=== PATIENT | male | born 1960 | race Caucasian/White ===

== ENCOUNTER 2016-08-19 07:30 | Day surgery (SDC) | payer OTHER ==
[~2016-08-19] VITALS: Ht 182.9 cm; Wt 94.9 kg
--- NOTE | ~2016-08-19 | OR ---
PATIENT'S NAME: [facility] AGE: 56 Y [address] ROOM: [place] [id number] LOCATION: GEND ADMIT DATE: 08/19/2016 OR/Procedure Report DISCHARGE DATE: 08/19/2016 FAMILY PHYSICIAN: Yusuf Pereira MD ATTENDING PHYSICIAN: ROMMEL BARKER SURGEON: Pee Harrison MD PROPERTY CUSTODIAN: DATE OF PROCEDURE: 08/19/2016 PROCEDURE PERFORMED: Esophagogastroduodenoscopy. INDICATION: GERD and abdominal pain. MEDICATIONS: Please see anesthesiology record for details. CONSENT: The risks/benefits/alternatives were discussed and the patient or his power of divorce attorney expressed understanding and agreed to proceed. Informed consent was obtained and placed in the chart. Time-out was completed prior to starting the procedure. PROCEDURE: Patient was placed in the left lateral decubitus position. One- lead EKG monitoring was used along with intermittent blood pressure monitoring and pulse oximetry. Bite block was placed in the patient's mouth. The above medications were given and titrated to response. Once adequate sedation was completed, the endoscope was passed through the patient's mouth into the posterior oropharynx. The endoscope was then passed into the esophagus, stomach and duodenal bulb. The duodenum was examined through the third portion. The endoscope was then withdrawn into the stomach. In the stomach, retroflexion was completed. The scope was then straightened and withdrawn from the patient. The patient tolerated the procedure well. There were no complications. SUMMARY OF FINDINGS: 1. Normal esophagus with a regular Z-line. No evidence of any hiatal hernia on exam today. 2. Mild gastritis status post biopsies, rule out H pylori. 3. Normal duodenum. Subtle villous flattening status post biopsies to rule out celiac disease. ASSESSMENT AND PLAN: Abdominal pain and gastroesophageal reflux disease: I see no evidence of Griggs's esophagus on exam today. We will await biopsies for further recommendations. The patient should continue PPI and follow up in clinic as needed. PATIENT'S NAME: [facility] AGE: 56 Y [address] ROOM: [place] [address] LOCATION: GEND ADMIT DATE: 08/19/2016 OR/Procedure Report DISCHARGE DATE: 08/19/2016 FAMILY PHYSICIAN: Yusuf Pereira MD ATTENDING PHYSICIAN: ROMMEL BARKER J MD KT [place]/modl /[id number] d: 08/19/16 0955 t: 08/20/16 1359, OPERATIVE SUMMARY
[~2016-08-19 07:30] MED LIST: AMBIEN5 MG PO; ATIVAN 0.5MG0.5 MG PO; CARAFATE1 GM PO; CELEXA10 MG PO; CYMBALTA30 MG PO; GLUCOPHAGE500 MG PO; JANUVIA 100 MG100 MG PO; LEVAQUIN500 MG PO; NORVASC5 MG PO; OMEPRAZOLE40 MG PO; PRINIVIL (ZESTR20 MG PO; PROTONIX40 MG PO; REGLAN10 MG PO; RISPERDAL2 MG PO; XANAX1 MG PO; ZANTAC300 MG PO; ZYPREXA10 MG PO
[2016-08-19] MEDS ORDERED: [UNRECOGNIZED DRUG - CODE] PO (07:55)
== END 2016-08-19 09:30 | disposition disaster alternative care site (69) ==
LOC: GEND 07:30 → GSIP 07:30 → GEND 09:30 → GPOC 15:00
PROC: 0DB68ZX Excision of Stomach, Via Natural or Artificial Opening Endoscopic, Diagnostic (ICD-10-PCS; principal; 2016-08-19)
PROC: 0DB88ZX Excision of Small Intestine, Via Natural or Artificial Opening Endoscopic, Diagnostic (ICD-10-PCS; 2016-08-19)
DX: K29.70 Gastritis, unspecified, without bleeding (principal); K25.9 Gastric ulcer, unspecified as acute or chronic, without hemorrhage or perforation; K21.9 Gastro-esophageal reflux disease without esophagitis; K31.89 Other diseases of stomach and duodenum; K63.89 Other specified diseases of intestine; I10 Essential (primary) hypertension; E11.9 Type 2 diabetes mellitus without complications; F41.9 Anxiety disorder, unspecified; F32.9 Major depressive disorder, single episode, unspecified
CPT/HCPCS: J7030